=== PATIENT | female | born 1995 | race Caucasian/White ===

== ENCOUNTER 2021-07-22 20:46 | Emergency (ER) | payer OTHER ==
[2021-07-22 21:26] LABS: HEMOGLOBIN 13.1 gm/dl (12.3-15.3); RED BLOOD COUNT 4.73 M/UL (4.00-5.10); WHITE BLOOD COUNT 9.4 K/UL (4.5-11.0)
[2021-07-22 21:54] LABS: BUN/CREATININE RATIO 16 (0-10)
== END 2021-07-23 01:20 | disposition home or self-care (01) ==
LOC: ER1 20:46
PROVIDERS: Family Medicine
DX: R55 Syncope and collapse (principal); R07.9 Chest pain, unspecified; I11.9 Hypertensive heart disease without heart failure; I45.10 Unspecified right bundle-branch block; Z51.81 Encounter for therapeutic drug level monitoring
CPT/HCPCS: 71045; 80053; 82550; 82553; 84484; 84703; 85025; 85379; 85610; 85730; 93005; 99285; Q9967